=== PATIENT | male | born 1980 | race Two or more races ===

== ENCOUNTER → 2021-09-19 | Outpatient (CLI) | payer OTHER ==
[2021-09-19 10:00] LABS: CREATININE 0.8 mg/dL (0.7-1.3); TOTAL BILIRUBIN 10.4 mg/dL (0.2-1.0)
[2021-09-19 10:05] LABS: PROTHROMBIN TIME PATIENT 42.6 SEC (11.7-14.0)
== END ==
LOC: LAB 08:55
PROVIDERS: ATTEND Family Medicine
DX: Z02.71 Encounter for disability determination (principal); B19.20 Unspecified viral hepatitis C without hepatic coma; K74.60 Unspecified cirrhosis of liver
CPT/HCPCS: 36415; 82247; 82565; 85610